=== PATIENT | male | born 1990 | race African-American/Black ===

== ENCOUNTER 2021-05-19 15:10 | Emergency (ER) | payer MEDICARE, MEDICAID, SELFPAY ==
[2021-05-19 15:23] VITALS: BP 136/75; PULSE 73; RESP 16; TEMP 36.5; O2SAT 100
--- NOTE | 2021-05-19 15:27 | ED.MALEGU ---
HPI - Male Genitourinary General Chief complaint: Urogenital-Male Stated complaint: UTI Source: patient Limitations: no limitations History of Present Illness HPI Narrative: 31-year-old male presenting for complaint of dysuria, suprapubic pain, and clear urethral discharge for 1 month. He denies concern for STD, but is agreeable to testing. Denies malaise, myalgia, cloudy urine, nausea, vomiting, diarrhea, fever or chills. Endorses over one year of hesitancy and dribbling. Endorses 'nodule' to scrotum. Related Data Home Medications Medication Instructions Recorded Confirmed albuterol 05/19/21 sertraline 05/19/21 Allergies Allergy/AdvReac Type Severity Reaction Status Date / Time No Known Allergies Allergy Verified 05/19/21 15:25 Review of Systems Review of Systems: CONSTITUTIONAL: Denies body aches, fever, chills, or sweats. CARDIOVASCULAR: Denies chest pain, palpitations, or edema. RESPIRATORY: Denies cough or dyspnea. GASTROINTESTINAL: Denies abdominal pain, nausea, vomiting, or diarrhea. GENITOURINARY: Reports clear urethral dc, dysuria, frequency, urgency, dribbling; denies hematuria, hematospermia, pain/itching/swelling to penis, or flank pain SKIN: Denies rash, itching, or wounds. MUSCULOSKELETAL: Denies back pain or myalgia. PMFSH Comments At time of signature, I have reviewed and agree with nursing past medical, surgical, social and family history unless otherwise noted. Please see nursing chart for further information. There is no relevant family history pertinent to the presenting complaint Exam Narrative: GENERAL: Well-appearing and in no acute distress. HEAD: Normocephalic EYES: EOMI. No redness or drainage. ENT: Mucous membranes pink and moist. NECK: Normal AROM. Supple. CHEST: No respiratory distress. Clear to auscultation. HEART: Regular rate and rhythm. ABDOMEN: Soft, nontender, nondistended, normal active bowel sounds. No CVA tenderness : prostate enlarged on JUSTIN, external hemorrhoids; no scrotal edema, scrotal nodule is c/w site of mole MUSCULOSKELETAL: No bony tenderness. SKIN: Warm, dry, no rash. NEURO: No focal deficits. Alert and oriented x3. Gait steady. PSYCH: Normal affect. No signs of depression or anxiety. Course Course Emergency Course: we discussed differential dx, pt is agreeable to treatment plan for prostatitis. States he would like to receive the IM injection for possibile gonococcal infection, but does not want the treatment for chlamydia or trich at this time and will wait for the results of the culture. Pt then refused IM injection, did not want to wait for re-assessment. Patient is aware of diagnosis, understands and agrees to treatment plan. Anticipatory guidance given. Patient agrees to follow-up as directed and is aware of reasons to seek care at the emergency department. Portions of this record may have been created with voice recognition software Level of Care: Express Care Visit Vital Signs Vital signs: Reviewed MDM - Male Genitourinary MDM Narrative Medical decision making narrative: Exam findings and UA show no acute concerns or changes; patient is non-toxic appearing and is in no distress. Patient is appropriate for outpatient treatment and follow-up. Differential Diagnosis Differential diagnosis: Likely urinary tract infection, urethritis and other (sti) Discharge Plan Discharge Clinical Impression: Dysuria Patient Disposition: Home, Self-Care Condition: Stable Instructions: Antibiotic Form, Prostatitis (ED) Additional Instructions: Take antibiotics as directed recommend follow up with primary care provider as well as urologist for further evaluation and recommendations Return for any worsening symptoms or concerns Prescriptions: New ciprofloxacin HCl [Cipro] 500 mg tablet 500 mg PO Q12H 28 Days Qty: 56 RF: 0 No Action albuterol RF: 0 sertraline RF: 0 Follow-up/Referrals: [facility]
--- NOTE | 2021-05-19 16:48 | PC.NURSE ---
Patient refused medication. Did not want to wait 20 minutes after the injection.
== END 2021-05-19 16:26 | disposition home or self-care (01) ==
PROVIDERS: Emergency Provider Nurse Practitioner Family
DX: R30.0 Dysuria (principal)
CPT/HCPCS: 81003; 87491; 87591; 87661; 99213; G0463

== ENCOUNTER 2021-06-18 10:47 | Emergency (ER) | payer MEDICARE, SELFPAY ==
[2021-06-18 11:01] VITALS: PULSE 76; RESP 16; TEMP 36.1; O2SAT 100
[2021-06-18 11:38] LABS: Add Urine Microscopic? YES; Appearance Urine Clear (Clear); Bilirubin Urine Negative (Negative); Blood Urine Negative (Negative); Color Urine Yellow (Yellow); Glucose Urine UA Negative (Negative); Ketones Urine Negative (Negative); Leukocyte Esterase Ur Negative LEU/UL (Negative); Mucus Urine Rare /lpf; Nitrate Urine Negative (Negative); Protein Urine Negative (Negative); RBC Urine 0-2 /hpf (0-2); Specific Grav Ur 1.018 (1.001-1.035); Urobilinogen Urine Negative mg/dL (<2.0); WBC Urine 0-3 /hpf
--- NOTE | 2021-06-18 11:51 | ED.MALEGU ---
HPI - Male Genitourinary General Chief complaint: Urogenital-Male Stated complaint: urinary issues Time Seen by Provider: 06/18/21 11:39 Source: patient Mode of arrival: ambulatory Limitations: no limitations History of Present Illness HPI Narrative: Patient is 31 years old -[place] male came with urine frequency and urethral discomfort for over 1 month. Patient denies any fever, chills, nausea, vomiting, or penile discharge. Patient is for the last 6 years, denies any extramarital affair, his at the bedside who denied any vaginal discharge or any vaginal complaints. Patient was seen at urgent care 3 weeks ago and discharged on Cipro. Patient did not get the medication refilled. Related Data Home Medications Medication Instructions Recorded Confirmed albuterol 05/19/21 sertraline 05/19/21 Allergies Allergy/AdvReac Type Severity Reaction Status Date / Time No Known Allergies Allergy Verified 05/19/21 15:25 Review of Systems Review of Systems: CONSTITUTIONAL: Denies fever, chills, or sweats. EYES: Denies visual changes, redness, or discharge. ENT: Denies rhinorrhea, congestion, sore throat, or otalgia. CARDIOVASCULAR: Denies chest pain, palpitations, or edema. RESPIRATORY: Denies cough or dyspnea. GASTROINTESTINAL: Denies abdominal pain, nausea, vomiting, or diarrhea. GENITOURINARY: Denies dysuria or hematuria. SKIN: Denies rash or itching. MUSCULOSKELETAL: Denies back pain, joint pain, or myalgia. NEUROLOGIC: Denies headache, numbness, or weakness. PSYCHIATRIC: Denies anxiety or depression. Exam Narrative: General appearance: Well-developed, well-nourished Skin: Normal color Head: Normocephalic, nontraumatic Eyes: Clear conjunctiva ENT: Oropharynx normal, ears normal, nose normal Neck: Supple, nontender Chest and respiratory: Airway patent, no respiratory distress, no accessory muscle use Heart: Regular rate/rhythm Abdomen: Soft, nontender, no organomegaly, quiet bowel sounds, genital exam with normal limit Vascular: Normal peripheral pulses, normal capillary refill. Musculoskeletal: Normal range of motion, nontender back Neurologic: Alert and oriented ?3, [employer] is normal as tested, no gross motor deficit Course Course Emergency Course: Stable Vital Signs Vital signs: Vital Signs Temperature 36.1 C L 06/18/21 11:01 Pulse Rate 76 06/18/21 11:01 Respiratory Rate 16 06/18/21 11:01 Pulse Oximetry 100 06/18/21 11:01 Temperature 36.1 C L 06/18/21 11:01 Pulse Rate 76 06/18/21 11:01 Respiratory Rate 16 06/18/21 11:01 Pulse Oximetry 100 06/18/21 11:01 MDM - Male Genitourinary MDM Narrative Medical decision making narrative: Urethritis, prostatitis, urinary tract infection Differential Diagnosis Differential diagnosis: Likely other (Prostatitis, urinary tract infection, urethritis) Lab Data Labs: Lab Results 06/18/21 Range/Units 11:29 Urine Color Yellow (Yellow) Urine Appearance Clear (Clear) Urine pH 6.0 (5.0-9.0) Ur Specific [place] 1.018 (1.001-1.035) Urine Protein Negative (Negative) mg/dL Urine Glucose (UA) Negative (Negative) mg/dL Urine Ketones Negative (Negative) mg/dL Ur Blood (Man) Negative (Negative) Urine Nitrate Negative (Negative) Urine Bilirubin Negative (Negative) Urine Urobilinogen Negative (<2.0) mg/dL Leukocyte Esterase Rfl Negative (Negative) SAVANNAH/UL Urine RBC 0-2 (0-2) /hpf Urine WBC 0-3 /hpf Urine Mucus Rare /lpf Critical Care Time Critical Care Time Critical Care Time: No Discharge Plan Discharge Clinical Impression: Urethritis Patient Disposition: Home, Self-Care Condition: S
== END 2021-06-18 12:25 | disposition home or self-care (01) ==
PROVIDERS: Emergency Medicine; Emergency Provider Emergency Medicine
DX: N34.2 Other urethritis (principal)
CPT/HCPCS: 81001; 99283